=== PATIENT | male | born 1935 | race Caucasian/White ===

== ENCOUNTER 2019-07-05 06:01 | Inpatient (IN) ==
[~2019-07-05 06:01] MED LIST: ceFAZolin 1,000 MG, Sodium Chloride IRRigation 1,000 ML IR ONE
[2019-07-05] MEDS ORDERED: CeFAZolin Syr 2,000MG/20 ML 2,000 MG/20 ML SYRINGE IVPB ONE (06:35)
[2019-07-05] MEDS ORDERED: Ringers Solution, Lactated 1,000 ML IVC SCH (06:45)
[2019-07-05] MEDS ORDERED: Famotidine 20 MG/2 ML VIAL IVP ONE (07:00)
[2019-07-05] MEDS ORDERED: Acetaminophen IV 1,000 MG/100 ML INFUS..BTL IVPB ONE (07:01)
[2019-07-05] MEDS ORDERED: Lidocaine -MPF 2% 2 ML VIAL ONE ×2 (07:04→07:08)
[2019-07-05] MEDS ORDERED: *HR* Propofol 200 MG/20 ML VIAL IVP ONE (07:04)
[2019-07-05] MEDS ORDERED: *HR* Succinylcholine 200 MG/10 ML VIAL IVP ONE (07:04)
[2019-07-05] MEDS ORDERED: *HR* FentaNYL (PF) 100 MCG/2 ML VIAL ONE (07:04)
[2019-07-05] MEDS ORDERED: EPINEPHrine 1 MG/ML VIAL ONE (07:04)
[2019-07-05] MEDS ORDERED: *HR* Rocuronium Bromide 50 MG/5 ML VIAL ONE (07:04)
[2019-07-05] MEDS ORDERED: Protamine Sulfate 50 MG/5 ML VIAL IVP ONE (07:13)
[2019-07-05] MEDS ORDERED: 0.9 % Sodium Chloride 500 ML IVC SCH (07:15)
[2019-07-05] MEDS ORDERED: Heparin 1,000 UNITS/500 mL 500 ML ONE ×2 (07:16→07:31)
[2019-07-05] MEDS ORDERED: *HR* Phenylephrine 10 MG/ML VIAL ONE (07:19)
[2019-07-05] MEDS ORDERED: *HR* Remifentanil 2 MG VIAL IVP ONE (07:20)
[2019-07-05] MEDS ORDERED: *HR* Norepinephrine 4 MG/4 ML VIAL IVC ONE (07:36)
[2019-07-05] MEDS ORDERED: NiCARdipine 2.5 MG/10 ML Syringe IVPB ONE (07:37)
[2019-07-05] MEDS ORDERED: EPHEDrine 50 MG/ML VIAL ONE (07:43)
[2019-07-05] MEDS ORDERED: Lidocaine Jelly 6ml 1 APPL/6 ML JEL.PF.APP ONE (07:58)
[2019-07-05] MEDS ORDERED: *HR* Labetalol 20 MG/4 ML SYRINGE IVP PRN ×2 (08:06→12:20)
[2019-07-05] MEDS ORDERED: Morphine Sulfate 2 MG/ML SYRINGE IVP PRN (08:06)
[2019-07-05] MEDS ORDERED: Ondansetron 4 MG/2 ML VIAL IVP ONE (08:06)
[2019-07-05] MEDS ORDERED: *HR* Atropine Sulfate 8 MG/20 ML VIAL IVP ONE (08:42)
[2019-07-05] MEDS ORDERED: *HR* Heparin 5,000 UNIT/ML VIAL ONE ×2 (09:02→09:43)
[2019-07-05 10:12] LABS: ABG Base Excess 2 mEq/L (-2 to 3); ABG Chloride 104 mEq/L (98-107); ABG Glucose 107 mg/dL (60-95); ABG HCO3 27 mEq/L (21-27); ABG Ionized Calcium 1.12 mmol/L (1.15-1.35); ABG Oxygen Saturation 100 % (95-98); ABG PCO2 40 mmHg (35-45); ABG PH 7.43 pH Units (7.32-7.45); ABG PO2 460 mmHg (85-104); ABG TCO2 28 mEq/L (20-26)
[2019-07-05] MEDS ORDERED: Ondansetron 4 MG/2 ML VIAL ONE (10:37)
[2019-07-05] MEDS ORDERED: Ondansetron 4 MG/2 ML VIAL IVP PRN (12:20)
[2019-07-05] MEDS ORDERED: Acetaminophen 325 MG TABLET PO PRN (12:20)
[2019-07-05] MEDS ORDERED: Naloxone 0.4 MG/ML INJ IVP PRN (12:20)
[2019-07-05] MEDS ORDERED: *HR* HYDROcodone/Acet 5/325 mg TABLET PO PRN (12:20)
[2019-07-05] MEDS: ceFAZolin 2,000 MG in 0.9 % Sodium Chloride 100 ML IVPB SCH ×2 (16:50→23:44)
[2019-07-06 04:22] LABS: Basophils % 0.1 %; Eosinophils # 0.1 K/mcL (0.0-0.6); Eosinophils % 0.7 %; Hematocrit 32.6 % (37.5-50.1); Hemoglobin 10.5 g/dL (12.9-16.9); Immature Granulocytes % 0.3 % (0-4); Lymphocytes # 0.6 K/mcL (0.6-4.6); Lymphocytes % 6.4 %; Mean Corpuscular HGB Conc 32.2 g/dL (31.6-35.5); Mean Corpuscular Hemoglobin 30.6 pg (28.0-33.3); Mean Platelet Volume 10.5 fL (9.4-12.4); Monocytes # 0.8 K/mcL (0.0-1.3); Monocytes % 8.6 %; Neutrophils # 7.7 K/mcL (1.6-8.9); Platelet Count 170 K/mcL (140-400); Red Blood Count 3.43 M/mcL (4.19-5.50); Red Cell Distribution Width 13.2 % (11.5-14.5); Segmented Neutrophils % 83.9 %; White Blood Count 9.2 K/mcL (4.3-11.1)
[2019-07-06 04:44] LABS: BUN/Creatinine Ratio 16 (6-26); Blood Urea Nitrogen 20 mg/dL (8-23); Calcium 8.1 mg/dL (8.6-10.3); Carbon Dioxide 27 mEq/L (23-29); Chloride 103 mEq/L (98-107); Glucose 113 mg/dL (70-105); Osmolality,Calculated 285 (280-300); Potassium 3.4 mEq/L (3.5-5.1); Sodium 136 mEq/L (136-145); eGFR For African Americans > 60 (> 60); eGFR For Non-African Americans 53 (> 60)
[2019-07-06] MEDS: ceFAZolin 2,000 MG in 0.9 % Sodium Chloride 100 ML IVPB SCH (08:32)
[2019-07-06] MEDS ORDERED: Multivit/Ca/Min/Fe/FA 1 TAB TABLET PO SCH (09:00)
[2019-07-06] MEDS ORDERED: hydrALAZINE 25 MG TABLET PO SCH (09:00)
[2019-07-06] MEDS ORDERED: hydroCHLOROthiazide 25 MG TABLET PO SCH (09:00)
[2019-07-06] MEDS ORDERED: Aspirin Enteric Coated 81 MG Tablet PO SCH (09:00)
[2019-07-06] MEDS ORDERED: Finasteride 5 MG TABLET PO SCH (09:00)
[2019-07-06 11:49] VITALS: BP 135/54
== END 2019-07-06 04:45 | disposition home or self-care (01) | DRG 39 ==
LOC: SAMDAY 06:01 → 2NNU 11:58
PROVIDERS: ADMIT Surgery Vascular Surgery; ATTEND Surgery Vascular Surgery

== ENCOUNTER 2020-10-16 15:30 | Observation (INO) ==
[2020-10-16 16:50] LABS: Bilirubin,Urine Negative (Negative); Blood,Urine Large (Negative); Clarity,Urine Clear (Clear); Color,Urine Colorless (Yellow); Glucose,Urine (UA) Normal (Normal); Ketones,Urine Negative (Negative); Leukocyte Esterase,Urine Negative (Negative); Nitrite,Urine Negative (Negative); Protein,Urine 70 mg/dL (Neg-Trace); Specific Gravity,Urine 1.016 (1.010-1.025); Urobilinogen,Urine Normal (Normal)
[2020-10-16 16:52] LABS: RBC,Urine TNTC per hpf (0-3)
[2020-10-16] MEDS ORDERED: Isovue-370 500 ML BOTTLE IVP ONE (18:03)
[2020-10-16 18:26] LABS: Basophils % 0.3 %; Eosinophils # 0.1 K/mcL (0.0-0.6); Eosinophils % 0.6 %; Hematocrit 44.9 % (37.5-50.1); Hemoglobin 14.8 g/dL (12.9-16.9); Immature Granulocytes % 0.3 % (0-4); Lymphocytes # 1.2 K/mcL (0.6-4.6); Lymphocytes % 12.2 %; Mean Corpuscular Volume 94.1 fL (83.0-100.0); Mean Platelet Volume 10.2 fL (9.4-12.4); Monocytes # 0.8 K/mcL (0.0-1.3); Monocytes % 8.5 %; Neutrophils # 7.4 K/mcL (1.6-8.9); Platelet Count 244 K/mcL (140-400); Red Blood Count 4.77 M/mcL (4.19-5.50); Red Cell Distribution Width 13.4 % (11.5-14.5); Segmented Neutrophils % 78.1 %; White Blood Count 9.4 K/mcL (4.3-11.1)
[2020-10-16 18:45] LABS: Albumin 4.3 g/dL (3.5-5.7); Albumin/Globulin Ratio 1.6 (1.1-2.2); Bilirubin,Direct 0.2 mg/dL (0.0-0.2); Bilirubin,Total 1.2 mg/dL (0.3-1.0); Calcium 9.1 mg/dL (8.6-10.3); Globulin 2.7 g/dL (2.4-3.5); Potassium 3.9 mEq/L (3.5-5.1)
[2020-10-16 18:46] LABS: Activated Partial Thrombo Time 26.3 Seconds (26.0-36.0)
[2020-10-16 18:47] LABS: INR 1.1; Prothrombin Time 12.9 Seconds (9.4-12.1)
[2020-10-16] MEDS ORDERED: Lidocaine Jelly 11 ml Syringe TP ONE (22:31)
[2020-10-16] MEDS ORDERED: *HR* HYDROcodone/Acet 5/325 mg TABLET PO PRN (23:59)
[2020-10-16] MEDS ORDERED: Melatonin 3 MG TABLET PO PRN (23:59)
[2020-10-16] MEDS ORDERED: Acetaminophen 325 MG TABLET PO PRN (23:59)
[2020-10-16] MEDS ORDERED: Naloxone 0.4 MG/ML INJ IVP PRN (23:59)
[2020-10-16] MEDS ORDERED: Ondansetron 4 MG/2 ML VIAL IVP PRN (23:59)
[2020-10-17 03:22] LABS: Basophils % 0.2 %; Eosinophils % 0.1 %; Hematocrit 41.6 % (37.5-50.1); Hemoglobin 13.7 g/dL (12.9-16.9); Immature Granulocytes % 0.6 % (0-4); Lymphocytes # 0.8 K/mcL (0.6-4.6); Lymphocytes % 5.9 %; Mean Corpuscular HGB Conc 32.9 g/dL (31.6-35.5); Mean Corpuscular Hemoglobin 31.2 pg (28.0-33.3); Mean Corpuscular Volume 94.8 fL (83.0-100.0); Mean Platelet Volume 10.7 fL (9.4-12.4); Monocytes # 0.9 K/mcL (0.0-1.3); Neutrophils # 11.5 K/mcL (1.6-8.9); Platelet Count 218 K/mcL (140-400); Red Blood Count 4.39 M/mcL (4.19-5.50); Red Cell Distribution Width 13.2 % (11.5-14.5); Segmented Neutrophils % 86.2 %; White Blood Count 13.4 K/mcL (4.3-11.1)
[2020-10-17 03:24] LABS: INR 1.1; Prothrombin Time 13.2 Seconds (9.4-12.1)
[2020-10-17 03:45] LABS: Calcium 8.6 mg/dL (8.6-10.3); Potassium 3.3 mEq/L (3.5-5.1)
[2020-10-17] MEDS: hydrALAZINE 10 MG TABLET PO SCH ×2 (07:57→14:51)
[2020-10-17] MEDS ORDERED: Finasteride 5 MG TABLET PO SCH (09:00)
[2020-10-17] MEDS ORDERED: Aspirin Enteric Coated 81 MG Tablet PO SCH (09:00)
[2020-10-17] MEDS ORDERED: cloNIDine HCL 0.1 MG TABLET PO PRN (09:48)
[2020-10-17 14:34] VITALS: BP 117/58
[2020-10-17] MEDS ORDERED: *HR* LORazepam 1 MG TABLET PO PRN (21:00)
[2020-10-18] MEDS ORDERED: Losartan/HCTZ 50-12.5 TABLET PO SCH (09:00)
== END 2020-10-17 17:53 | disposition home or self-care (01) ==
LOC: 3ANU 15:30 → EMEROOARM 15:30 → 3ANU 10-17 01:26
PROVIDERS: ADMIT Internal Medicine; ATTEND Internal Medicine

== ENCOUNTER 2021-11-06 22:14 | Inpatient (IN) ==
[2021-11-07] MEDS ORDERED: Acetaminophen 325 MG TABLET PO PRN (04:57)
[2021-11-07] MEDS ORDERED: Naloxone 0.4 MG/ML INJ IVP PRN (04:57)
[2021-11-07] MEDS ORDERED: Perflutren Lipid Microsphere 1.3 ML in 0.9 % Sodium Chloride 8.7 ML IVP PRN (05:54)
[2021-11-07 06:37] LABS: Basophils % 0.2 %; Eosinophils % 0.2 %; Hematocrit 42.9 % (37.5-50.1); Immature Granulocytes % 0.5 % (0-4); Lymphocytes # 0.9 K/mcL (0.6-4.6); Lymphocytes % 10.9 %; Mean Corpuscular HGB Conc 32.6 g/dL (31.6-35.5); Mean Corpuscular Hemoglobin 31.3 pg (28.0-33.3); Mean Platelet Volume 11.9 fL (9.4-12.4); Monocytes # 0.8 K/mcL (0.0-1.3); Monocytes % 8.9 %; Neutrophils # 6.7 K/mcL (1.6-8.9); Nucleated Red Blood Cells 0.2 /100 WBC (0); Platelet Count 231 K/mcL (140-400); Red Blood Count 4.47 M/mcL (4.19-5.50); Red Cell Distribution Width 15.4 % (11.5-14.5); Segmented Neutrophils % 79.3 %; White Blood Count 8.4 K/mcL (4.3-11.1)
[2021-11-07] MEDS ORDERED: *HR* Heparin 5,000 UNIT/ML VIAL IVP PRN ×3 (06:58→07:34)
[2021-11-07] MEDS ORDERED: Heparin 25,000UNIT/250ML 1/2NS 25,000 UNIT/250 ML IV.SOLN IVC SCH ×3 (07:00→07:45)
[2021-11-07 07:18] LABS: Magnesium 2.6 mg/dL (1.6-2.6); Phosphorous 5.8 mg/dL (2.7-4.5); Troponin I 0.11 ng/mL (< 0.04)
[2021-11-07] MEDS: Aspirin Enteric Coated 81 MG Tablet PO SCH (08:13)
[2021-11-07] MEDS: Heparin 25,000UNIT/250ML 1/2NS 25,000 UNIT/250 ML IV.SOLN IVC SCH (08:14)
[2021-11-07] MEDS ORDERED: DilTIAZem CD (24hr) 120 MG CAP.ER.24H PO SCH (09:00)
[2021-11-07 09:18] LABS: Heparin anti-factor XA UFH 0.29 IU/mL (0.30-0.70)
[2021-11-07 09:29] LABS: Albumin 3.9 g/dL (3.5-5.7); Albumin/Globulin Ratio 1.7 (1.1-2.2); Globulin 2.3 g/dL (2.4-3.5); Potassium 3.4 mEq/L (3.5-5.1); Total Protein 6.2 g/dL (6.4-8.9)
[2021-11-07 11:18] LABS: Activated Partial Thrombo Time 49.4 Seconds (26.0-36.0)
[2021-11-07 11:44] LABS: Uric Acid 11.9 mg/dL (2.3-7.6)
[2021-11-07] MEDS: *HR* Heparin 5,000 UNIT/ML VIAL IVP PRN (11:53)
[2021-11-07 11:57] LABS: Parathyroid Hormone Intact 139.9 pg/ml (10.0-65.0)
[2021-11-07 12:14] LABS: Bilirubin,Urine Negative (Negative); Blood,Urine Negative (Negative); Clarity,Urine Clear (Clear); Color,Urine Light-Yellow (Yellow); Glucose,Urine (UA) Normal (Normal); Ketones,Urine Negative (Negative); Leukocyte Esterase,Urine Negative (Negative); Nitrite,Urine Negative (Negative); PH,Urine 5.5 pH Units (5.0-8.0); Protein,Urine Negative (Neg-Trace); Specific Gravity,Urine 1.012 (1.010-1.025); Urobilinogen,Urine Normal (Normal)
[2021-11-07 12:23] LABS: Protein/Creatinine Ratio,Urine 0.11 mg/mg (0.00-0.20)
[2021-11-07] MEDS: Furosemide 40 MG/4 ML VIAL IVP SCH ×2 (13:00→20:19)
[2021-11-07 17:05] LABS: Troponin I 0.11 ng/mL (< 0.04)
[2021-11-07] MEDS: allopurinoL 100 MG TABLET PO SCH (17:52)
[2021-11-07] MEDS ORDERED: *HR* LORazepam 1 MG TABLET PO ONE (20:28)
[2021-11-08] MEDS: Albumin 25% 12.5gm/50mL 12.5 GM/50 ML IV.SOLN IVPB SCH ×4 (01:45→23:20)
[2021-11-08] MEDS: Furosemide 40 MG/4 ML VIAL IVP SCH ×2 (10:02→22:22)
[2021-11-08] MEDS: allopurinoL 100 MG TABLET PO SCH (10:02)
[2021-11-08] MEDS: Aspirin Enteric Coated 81 MG Tablet PO SCH (10:02)
[2021-11-08] MEDS: Heparin 25,000UNIT/250ML 1/2NS 25,000 UNIT/250 ML IV.SOLN IVC SCH (11:27)
[2021-11-08 12:56] LABS: Calcium 8.8 mg/dL (8.6-10.3); Potassium 3.7 mEq/L (3.5-5.1)
[2021-11-08] MEDS: *HR* Heparin 5,000 UNIT/ML VIAL IVP PRN (18:44)
[2021-11-08] MEDS: Mirtazapine 15 MG TABLET PO SCH (22:22)
[2021-11-08] MEDS ORDERED: *HR* LORazepam 2 MG/ML VIAL IVP ONE (22:53)
[2021-11-09 09:17] LABS: Basophils % 0.2 %; Eosinophils # 0.1 K/mcL (0.0-0.6); Eosinophils % 0.5 %; Hematocrit 41.9 % (37.5-50.1); Hemoglobin 13.8 g/dL (12.9-16.9); Immature Granulocytes % 0.2 % (0-4); Lymphocytes # 0.9 K/mcL (0.6-4.6); Lymphocytes % 9.2 %; Mean Corpuscular HGB Conc 32.9 g/dL (31.6-35.5); Mean Corpuscular Hemoglobin 31.1 pg (28.0-33.3); Mean Corpuscular Volume 94.4 fL (83.0-100.0); Mean Platelet Volume 11.3 fL (9.4-12.4); Monocytes # 0.9 K/mcL (0.0-1.3); Monocytes % 9.5 %; Neutrophils # 7.4 K/mcL (1.6-8.9); Platelet Count 226 K/mcL (140-400); Red Blood Count 4.44 M/mcL (4.19-5.50); Red Cell Distribution Width 15.2 % (11.5-14.5); Segmented Neutrophils % 80.4 %; White Blood Count 9.2 K/mcL (4.3-11.1)
[2021-11-09 09:32] LABS: Potassium 3.2 mEq/L (3.5-5.1)
[2021-11-09] MEDS: Finasteride 5 MG TABLET PO SCH (10:08)
[2021-11-09] MEDS: Albumin 25% 12.5gm/50mL 12.5 GM/50 ML IV.SOLN IVPB SCH ×3 (10:09→23:28)
[2021-11-09] MEDS: Aspirin Enteric Coated 81 MG Tablet PO SCH (10:09)
[2021-11-09] MEDS: allopurinoL 100 MG TABLET PO SCH ×2 (10:09→10:32)
[2021-11-09] MEDS: Fluticasone Propionate Nasal 50 MCG/SPRAY BOTTLE NS SCH (10:10)
[2021-11-09] MEDS: Heparin 25,000UNIT/250ML 1/2NS 25,000 UNIT/250 ML IV.SOLN IVC SCH (10:23)
[2021-11-09] MEDS ORDERED: polyethylene glycoL 3350 17 GM POWD.PACK PO PRN (10:47)
[2021-11-09] MEDS: Furosemide 40 MG/4 ML VIAL IVP SCH ×2 (11:38→20:28)
[2021-11-09] MEDS: Sennosides/Docusate Sodium TABLET PO SCH ×2 (11:39→20:28)
[2021-11-09] MEDS: Apixaban 2.5 MG TABLET PO SCH (20:28)
[2021-11-09] MEDS: Mirtazapine 15 MG TABLET PO SCH (20:28)
[2021-11-09] MEDS ORDERED: Melatonin 3 MG TABLET PO ONE (22:31)
[2021-11-10 04:08] LABS: Calcium 8.9 mg/dL (8.6-10.3); Potassium 3.5 mEq/L (3.5-5.1)
[2021-11-10] MEDS: allopurinoL 100 MG TABLET PO SCH (09:16)
[2021-11-10] MEDS: Apixaban 2.5 MG TABLET PO SCH ×2 (09:16→20:33)
[2021-11-10] MEDS: Sennosides/Docusate Sodium TABLET PO SCH (09:16)
[2021-11-10] MEDS: Finasteride 5 MG TABLET PO SCH (09:16)
[2021-11-10] MEDS: Furosemide 40 MG/4 ML VIAL IVP SCH (09:17)
[2021-11-10] MEDS: Aspirin Enteric Coated 81 MG Tablet PO SCH (09:17)
[2021-11-10] MEDS: Albumin 25% 12.5gm/50mL 12.5 GM/50 ML IV.SOLN IVPB SCH ×2 (09:17→17:07)
[2021-11-10] MEDS: Fluticasone Propionate Nasal 50 MCG/SPRAY BOTTLE NS SCH (09:18)
[2021-11-10] MEDS: Mirtazapine 15 MG TABLET PO SCH (20:32)
[2021-11-11] MEDS: Albumin 25% 12.5gm/50mL 12.5 GM/50 ML IV.SOLN IVPB SCH ×3 (00:07→15:32)
[2021-11-11 05:37] LABS: Basophils % 0.1 %; Eosinophils # 0.1 K/mcL (0.0-0.6); Eosinophils % 0.9 %; Hematocrit 40.4 % (37.5-50.1); Immature Granulocytes % 0.2 % (0-4); Lymphocytes # 0.9 K/mcL (0.6-4.6); Lymphocytes % 9.6 %; Mean Corpuscular HGB Conc 32.2 g/dL (31.6-35.5); Mean Corpuscular Hemoglobin 30.7 pg (28.0-33.3); Mean Corpuscular Volume 95.3 fL (83.0-100.0); Mean Platelet Volume 11.6 fL (9.4-12.4); Monocytes # 1.1 K/mcL (0.0-1.3); Monocytes % 11.5 %; Neutrophils # 7.1 K/mcL (1.6-8.9); Platelet Count 222 K/mcL (140-400); Red Blood Count 4.24 M/mcL (4.19-5.50); Red Cell Distribution Width 15.4 % (11.5-14.5); Segmented Neutrophils % 77.7 %; White Blood Count 9.2 K/mcL (4.3-11.1)
[2021-11-11 05:54] LABS: Albumin/Globulin Ratio 2.1 (1.1-2.2); Bilirubin,Direct 0.7 mg/dL (0.0-0.2); Bilirubin,Indirect 2.1 mg/dL (0.0-1.0); Bilirubin,Total 2.8 mg/dL (0.3-1.0); Globulin 1.9 g/dL (2.4-3.5); INR 1.9; Magnesium 2.1 mg/dL (1.6-2.6); Potassium 3.2 mEq/L (3.5-5.1); Prothrombin Time 21.1 Seconds (9.4-12.1); Total Protein 5.9 g/dL (6.4-8.9)
[2021-11-11] MEDS: Aspirin Enteric Coated 81 MG Tablet PO SCH (10:15)
[2021-11-11] MEDS: allopurinoL 100 MG TABLET PO SCH (10:15)
[2021-11-11] MEDS: Finasteride 5 MG TABLET PO SCH (10:15)
[2021-11-11] MEDS: Apixaban 2.5 MG TABLET PO SCH ×2 (10:15→19:53)
[2021-11-11] MEDS: Fluticasone Propionate Nasal 50 MCG/SPRAY BOTTLE NS SCH (10:16)
[2021-11-11] MEDS: Furosemide 40 MG/4 ML VIAL IVP SCH (11:53)
[2021-11-11] MEDS ORDERED: carvediloL 6.25 MG TABLET PO SCH (18:00)
[2021-11-11] MEDS: Mirtazapine 15 MG TABLET PO SCH (19:53)
[2021-11-12] MEDS: Albumin 25% 12.5gm/50mL 12.5 GM/50 ML IV.SOLN IVPB SCH ×2 (00:14→08:07)
[2021-11-12] MEDS: Melatonin 3 MG TABLET PO PRN (00:14)
[2021-11-12] MEDS: Apixaban 2.5 MG TABLET PO SCH ×2 (08:06→20:25)
[2021-11-12] MEDS: Aspirin Enteric Coated 81 MG Tablet PO SCH (08:06)
[2021-11-12] MEDS: carvediloL 6.25 MG TABLET PO SCH ×2 (08:06→16:45)
[2021-11-12] MEDS: allopurinoL 100 MG TABLET PO SCH (08:06)
[2021-11-12] MEDS: Fluticasone Propionate Nasal 50 MCG/SPRAY BOTTLE NS SCH (08:07)
[2021-11-12] MEDS: Finasteride 5 MG TABLET PO SCH (08:07)
[2021-11-12] MEDS: Furosemide 40 MG/4 ML VIAL IVP SCH (08:56)
[2021-11-12 11:20] LABS: Albumin 4.1 g/dL (3.5-5.7); Albumin/Globulin Ratio 2.7 (1.1-2.2); Bilirubin,Total 3.3 mg/dL (0.3-1.0); Calcium 8.7 mg/dL (8.6-10.3); Globulin 1.5 g/dL (2.4-3.5); Potassium 3.5 mEq/L (3.5-5.1); Total Protein 5.6 g/dL (6.4-8.9)
[2021-11-12] MEDS: Mirtazapine 15 MG TABLET PO SCH (20:25)
[2021-11-12] MEDS ORDERED: Furosemide 40 MG/4 ML VIAL IVP SCH (21:00)
[2021-11-12] MEDS: ALPRAZolam 0.5 MG TABLET PO PRN (22:58)
[2021-11-13 03:01] LABS: Albumin 3.9 g/dL (3.5-5.7); Bilirubin,Total 2.9 mg/dL (0.3-1.0); Potassium 4.1 mEq/L (3.5-5.1); Total Protein 5.9 g/dL (6.4-8.9)
[2021-11-13] MEDS: carvediloL 6.25 MG TABLET PO SCH ×2 (09:06→17:00)
[2021-11-13] MEDS: Aspirin Enteric Coated 81 MG Tablet PO SCH (09:07)
[2021-11-13] MEDS: Finasteride 5 MG TABLET PO SCH (09:07)
[2021-11-13] MEDS: allopurinoL 100 MG TABLET PO SCH (09:07)
[2021-11-13] MEDS: Apixaban 2.5 MG TABLET PO SCH ×2 (09:07→20:11)
[2021-11-13] MEDS: Fluticasone Propionate Nasal 50 MCG/SPRAY BOTTLE NS SCH (09:11)
[2021-11-13] MEDS ORDERED: *HR* FentaNYL (PF) 100 MCG/2 ML VIAL IVP PRN (09:49)
[2021-11-13] MEDS ORDERED: Lidocaine Viscous Oral Soln 15 ML SOLUTION MM PRN (09:49)
[2021-11-13] MEDS ORDERED: 0.9 % Sodium Chloride 500 ML IVC ONE (09:50)
[2021-11-13] MEDS ORDERED: *HR* Midazolam HCl 5 MG/5 ML VIAL IVP PRN (09:50)
[2021-11-13] MEDS: Mirtazapine 15 MG TABLET PO SCH (20:11)
[2021-11-14 01:58] LABS: Hematocrit 40.3 % (37.5-50.1); Hemoglobin 13.1 g/dL (12.9-16.9); Mean Corpuscular HGB Conc 32.5 g/dL (31.6-35.5); Mean Corpuscular Hemoglobin 31.3 pg (28.0-33.3); Mean Corpuscular Volume 96.4 fL (83.0-100.0); Platelet Count 190 K/mcL (140-400); Red Blood Count 4.18 M/mcL (4.19-5.50); Red Cell Distribution Width 15.2 % (11.5-14.5); White Blood Count 10.7 K/mcL (4.3-11.1)
[2021-11-14 02:23] LABS: Calcium 8.7 mg/dL (8.6-10.3); Potassium 3.8 mEq/L (3.5-5.1)
[2021-11-14] MEDS: Apixaban 2.5 MG TABLET PO SCH ×2 (09:38→20:53)
[2021-11-14] MEDS: allopurinoL 100 MG TABLET PO SCH (09:38)
[2021-11-14] MEDS: Fluticasone Propionate Nasal 50 MCG/SPRAY BOTTLE NS SCH (09:38)
[2021-11-14] MEDS: Aspirin Enteric Coated 81 MG Tablet PO SCH (09:38)
[2021-11-14] MEDS: Finasteride 5 MG TABLET PO SCH (09:38)
[2021-11-14] MEDS: carvediloL 6.25 MG TABLET PO SCH ×2 (09:39→16:31)
[2021-11-14] MEDS: Furosemide 20 MG TABLET PO SCH (16:31)
[2021-11-14] MEDS: Mirtazapine 15 MG TABLET PO SCH (20:53)
[2021-11-14] MEDS: ALPRAZolam 0.5 MG TABLET PO PRN (22:35)
[2021-11-15 03:17] LABS: Calcium 8.4 mg/dL (8.6-10.3); Potassium 3.6 mEq/L (3.5-5.1)
[2021-11-15] MEDS: carvediloL 6.25 MG TABLET PO SCH ×2 (10:09→16:32)
[2021-11-15] MEDS: allopurinoL 100 MG TABLET PO SCH (10:10)
[2021-11-15] MEDS: Finasteride 5 MG TABLET PO SCH (10:10)
[2021-11-15] MEDS: Aspirin Enteric Coated 81 MG Tablet PO SCH (10:10)
[2021-11-15] MEDS: Apixaban 2.5 MG TABLET PO SCH ×2 (10:10→20:46)
[2021-11-15] MEDS: Furosemide 20 MG TABLET PO SCH ×2 (10:10→16:32)
[2021-11-15] MEDS: Fluticasone Propionate Nasal 50 MCG/SPRAY BOTTLE NS SCH (10:11)
[2021-11-15] MEDS: Mirtazapine 15 MG TABLET PO SCH (20:46)
[2021-11-15] MEDS: Melatonin 3 MG TABLET PO PRN (20:53)
[2021-11-16 06:37] VITALS: BP 112/77; PULSE 79; TEMP 97.1; O2SAT 92
[2021-11-16 08:37] LABS: Calcium 8.7 mg/dL (8.6-10.3); Potassium 3.9 mEq/L (3.5-5.1)
[2021-11-16] MEDS: carvediloL 6.25 MG TABLET PO SCH (08:49)
[2021-11-16] MEDS: allopurinoL 100 MG TABLET PO SCH (08:49)
[2021-11-16] MEDS: Finasteride 5 MG TABLET PO SCH (08:49)
[2021-11-16] MEDS: Furosemide 20 MG TABLET PO SCH (08:49)
[2021-11-16] MEDS: Aspirin Enteric Coated 81 MG Tablet PO SCH (08:49)
[2021-11-16] MEDS: Fluticasone Propionate Nasal 50 MCG/SPRAY BOTTLE NS SCH (08:49)
[2021-11-16] MEDS: Apixaban 2.5 MG TABLET PO SCH (08:49)
== END 2021-11-16 17:20 | disposition home health service (06) | DRG 280 ==
LOC: 2ANU → SUATTDRO 11-07 04:55
PROVIDERS: ADMIT Student in an Organized Health Care Education/Training Program; ATTEND Internal Medicine